=== PATIENT | female | born 2005 ===

== ENCOUNTER 2025-03-15 07:01 | Outpatient (REF) | payer BC, SELFPAY ==
--- NOTE | ~2025-03-15 | US_ITS ---
EXAMINATION: US PELVIS TRANSABDOMINAL AND TRANSVAGINAL HISTORY: PELVIC PAIN COMPARISON: There are no prior studies available for comparison. TECHNIQUE: Transabdominal and endovaginal real-time 2D damon-scale ultrasound was performed. FINDINGS: Uterus: The uterus is normal in size, measuring 8.3 x 3.2 x 4.9 cm. Myometrium has a normal echotexture. No fibroids are identified. Endometrium: The endometrial stripe measures 5 mm in thickness. An IUD appears in appropriate position in the endometrial cavity. Right ovary: The right ovary measures 2.5 x 2.1 x 1.9 cm. The right ovary is normal in size and echotexture. Left ovary: The left ovary measures 2.7 x 2.2 x 1.4 cm. The left ovary is normal in size and echotexture. Pelvic fluid: none. US/US pelvic and transvaginal IMPRESSION: Unremarkable pelvic ultrasound. IUD in appropriate position in the endometrial canal. Electronically signed by: Joe Cristina MD 03/15/2025 12:48 PM EDT
--- OUTSIDE RECORDS SUMMARY | 2025-03-15 07:04 | XMS_ITS | Encounter Summary ---
Author Organization [facility] Address [address] [facility] [address] [place] [phone] Phone Care Team Providers Care Tv Production Assistant Name Role Phone Pcp, Unknown Primary Care Provider Cyndi Marie MD Primary Care Provider [phone] Encounter Details Date Type Department Care Team (Late st Contact Info) Description 02/26/2025 Procedure Pass [facility], [address] [address] Social History Tobacco Use Types Packs/Day Years Used Date Smoking Tobacco: Never Smokeless Tobacco: Never Alcohol Use Standard Drinks/Week Comments Not Currently 0 (1 standard drink = 0.6 oz pur e alcohol) Education Answer Date Recorded Are you interested in more education? Not on kylah e 02/26/2025 Are you concerned about learning? Not on file 02/26/2025 No 02/26/2025 No 02/26/2025 Digital Access Answer Date Recorded No 02/26/2025 No 02/26/2025 Reliable internet access at home? Not on file 02/26/2025 Device with a working camera? Not on file Intimate Partner Violence Answer Date R ecorded Are you denied basic needs s uch as food, clothing, or medical care? No 02/25/2025 In the past 12 months have y ou been in a relationship with a person who hurts, threatens, or tries to control you? No 02/25/2025 Are you denied basic needs s uch as food, clothing, or medical care? No 02/25/2025 In the past 12 months have y ou been in a relationship with a person who hurts, threatens, or tries to control you? No 02/25/2025 Comments Unknown Sex and Gender Information Value Date Recorded Sex Assigned at Female 02/25/2025 11:02 PM EDT Legal Sex Female 10:38 PM EDT Gender Identity Female 02/25/2025 11:02 PM EDT Sexual Orientation Straight 02/25/2025 11 :02 PM EDT documented as of this encounter Plan of Treatment Not on file documented as of this encounter Visit Diagnoses Not on filedocumented in this encounter Care Teams Tv Production Assistant Relationship Specialty Start Date End Date Pcp, Unknown PCP - General 02/26/25 02/28/25 Cyndi Garcia MD [address] [place] [phone] [email or web address] PCP - General Family Medicine 03/01/25 documented as of this encounter Additional Source Comments The information contained in this document represents components of the legal health record. It is not the complete legal health record.[facility]
--- OUTSIDE RECORDS SUMMARY | 2025-03-15 07:04 | XMS_ITS | Clinical Summary ---
Author Organization [facility] Address [address] [place] [address] Phone Care Team Providers Care Lumber Yard Worker Name Role Phone Cyndi Garcia MD Primary Care Provider [phone] Allergies No known active allergies Medications oxyCODONE 5 MG immediate release tablet Take 1 tablet (5 mg total) by mouth every 6 (six) hours as needed for pain (specific location in comments). Partial fill ok 12 tablet Active oxyCODONE 5 MG immediate release tablet Take 1 tablet (5 mg total) by mouth every 6 (six) hours as needed for pain (specific location in comments). Partial fill ok 12 tablet 5 025 Discontinued Encounters Date Type Department Care Team Description 03/01/2025 1:30 PM EDT Office Visit [facility] [address] [place] [address] [place] [address] Gopal Lang DO Right hip pain (Primary Dx) 02/26/2025 2:04 AM EDT - 02/26/2025 3:05 PM EDT Emergency [facility] [address] [place] [address] John Lyons, Gume Shin MD Discharge Disposition: Home or Self Care 02/26/2025 Procedure Pass [address] [address] 02/26/2025 Procedure Pass [address] [address] from Last 3 Months Social History Tobacco Use Types Packs/Day Years Used Date Smoking Tobacco: Never Smokeless Tobacco: Never Tobacco Cessation:Counseling Given: Not Answered Alcohol Use Standard Drinks/Week Comments Not Currently [...] Orientation Straight 02/25/2025 11 :02 PM EDT Last Filed Vital Signs Vital Sign Reading Time Taken Comments Blood Pressure 103/63 02/26/2025 11:52 AM EDT Pulse 70 02/26/2025 3:03 PM EDT Temperature 36.4 C (97.5 F) 02/26/2025 3:03 PM EDT Respiratory Rate 16 02/26/2025 3:03 PM EDT Oxygen Saturation 97% 02/26/2025 3:03 PM EDT Inhaled Oxygen Concentration - - Weight 59 kg (130 lb) 02/25/2025 11:04 PM EDT Height 167.6 cm (5' 6 ) 02/25/2025 11:04 PM EDT Body Mass Index 20.98 02/25/2025 11:04 PM EDT Plan of Treatment Health Maintenance Due Date Last Done Comments MMR VACCINES (1 of 1 - Stand tracie series) 2006 DEVELOPMENTAL/BEHAVIORAL SCR EENING (PHQ, PSC, or SWYC) 02/11/2008 COMBINED DTaP,Tdap,Td (1 - Tdap) 02/11/2012 DEPRESSION SCREENING 2017 VARICELLA VACCINES (1 of 2 - 13+ 2-dose series) 2018 HPV VACCINES (1 - 3-dose series) 02/11/2020 CHLAMYDIA SCREENING 2021 MENINGOCOCCAL VACCINES (B) ( 1 of 2 - Standard) 2021 ADOLESCENT UNIVERSAL LIPID SCREENING 2022 HEPATITIS C SCREENING 2023 HIV ONE-TIME SCREENING (18-6 5 YEARS) 2023 INFLUENZA VACCINE (#1) 2024 COVID-19 VACCINE (1 - 2023-2 5 season) 2025 SMOKING Hx and SMOKELESS TOB ACCO SCREENING 02/25/2026 02/25/2025 HEPATITIS A VACCINES Aged Out No long er eligible based on patient's age to complete this topic HIB VACCINES Aged Out No longer eligi ble based on patient's age to complete this topic MENINGOCOCCAL VACCINES (ACWY) Aged Out No longer eligible based on patient's age to complete this topic PNEUMOCOCCAL VACCINES (0-49 years) Aged Out No longer eligible based on patient's age to complete this topic Medical Devices Not on file Procedures Procedure Name Priority Date/Time Associated Diagnosis Comments MRI LUMBAR SPINE (NEURO) WITHOUT CONTRAST Routine 02/26/2025 9:14 AM EDT MRI HIP WITHOUT CONTRAST (RIGHT) Routine 02/26/2025 9:13 AM EDT C-REACTIVE PROTEIN STAT 02/26/2025 3: 55 AM EDT HCG, SERUM QUALITATIVE STAT 02/26/2025 3:55 AM EDT BASIC METABOLIC PANEL STAT 02/26/2025 3:55 AM EDT CBC AND DIFFERENTIAL STAT 02/26/2025 3:55 AM EDT from Last 3 Months Results * MRI LUMBAR SPINE (NEURO) WITHOUT CONTRAST (02/26/2025 9:14 AM EDT) Anatomical Region Laterality Modality L-spine Magnetic Resonan ce 02/26/2025 2:15 PM EDT Impressions 02/26/2025 2:24 PM EDT 1. Transitional lumbosacral anatomy as described. 2. No significant degenerative changes or specific findings to account for the reported clinical symptoms. Narrative 02/26/2025 2:24 PM EDT MRI LUMBAR SPINE (NEURO) WITHOUT CONTRAST Referring clinician's provided indication for this examination in Epic: * Low back pain, > 6 wks TECHNIQUE: MRI LUMBAR SPINE (NEURO) WITHOUT CONTRAST COMPARISON: None. FINDINGS: LUMBAR SPINE: Lumbosacral Transitional Anatomy: There are 6 nonrib-bearing lumbar-type vertebrae with lumbarization of S1. For the purposes of numbering, the first non rib- bearing vertebra is designated L1 and the lowest fully formed intervertebral disc space is designated S1-S2. Alignment and Vertebrae: Normal alignment. Normal vertebral body heights; no compression fracture. Marrow: No suspicious marrow replacing process. No focal marrow edema-like signal. Discs and Endplates: Normal intervertebral disc heights and signal. Conus: Normal position terminating at the level of L2. No signal abnormality. Soft Tissues: No prevertebral edema. Other Findings: Normal caliber common aorta. Findings by level: T12-L1: Minimal disc bulge. No spinal or foraminal stenosis. L1-L2: No spinal or foraminal stenosis. L2-L3: No spinal or foraminal stenosis. L3-L4: No spinal or foraminal stenosis. L4-L5: No spinal or foraminal stenosis. L5-S1: No spinal or foraminal stenosis. S1-S2: No spinal or foraminal stenosis. Procedure Note Lang Agosto MD - 02/26/2025 MRI LUMBAR SPINE (NEURO) WITHOUT CONTRAST Referring clinician's provided indication for this examination in Epic: *Low back pain, > 6 wks TECHNIQUE: MRI LUMBAR SPINE (NEURO) WITHOUT CONTRAST COMPARISON: None. FINDINGS: LUMBAR SPINE: Lumbosacral Transitional Anatomy: There are 6 nonrib-bearing lumbar- typevertebrae with lumbarization of S1. For the purposes of numbering, thefirst non rib- bearing vertebra is designated L1 and the lowest fullyformed intervertebral disc space is designated S1-S2. Alignment and Vertebrae: Normal alignment. Normal vertebral body heights;no compression fracture. Marrow: No suspicious marrow replacing process. No focal marrow edema- likesignal. Discs and Endplates: Normal intervertebral disc heights and signal. Conus: Normal position terminating at the level of L2. No signalabnormality. Soft Tissues: No prevertebral edema. Other Findings: Normal caliber common aorta. Findings by level: T12-L1: Minimal disc bulge. No spinal or foraminal stenosis. L1-L2: No spinal or foraminal stenosis. L2-L3: No spinal or foraminal stenosis. L3-L4: No spinal or foraminal stenosis. L4-L5: No spinal or foraminal stenosis. L5-S1: No spinal or foraminal stenosis. S1-S2: No spinal or foraminal stenosis. IMPRESSION: 1. Transitional lumbosacral anatomy as described. 2. No significant degenerative changes or specific findings to accountfor the reported clinical symptoms. Michelle Benoit PA-C IMG MR XSPECIALTY Final Res ult * MRI HIP WITHOUT CONTRAST (RIGHT) (02/26/2025 9:13 AM EDT) Anatomical Region Laterality Modality Hip Right Magnetic Resonan ce 02/26/2025 9:37 AM EDT Impressions 02/26/2025 9:46 AM EDT Nondisplaced anterosuperior labral tear. No focal cartilage defect. Narrative 02/26/2025 9:46 AM EDT MRI HIP WITHOUT CONTRAST (RIGHT) Referring clinician's provided indication for this examination in [facility]: * Hip pain, chronic, labral tear suspected, xray done TECHNIQUE: Multi-sequence, multi-planar MRI of the hip without intravenous contrast. COMPARISON: None FINDINGS: ENTIRE PELVIS SCREENING: No fracture, sacroiliitis, or focal bone lesion. DEDICATED RIGHT HIP: Bone: No fracture or osteonecrosis. Joint: No focal cartilage defect or subchondral bone marrow edema. Mild fibrocystic change at the anterior femoral head/neck junction. Nondisplaced anterosuperior labral tear (series 15, image 10). Tendons: Gluteus minimus, gluteus medius, iliopsoas, rectus femoris, and proximal hamstring tendons are intact. Soft Tissues: Very mild peritendinous edema along the gluteus minimus, but no intrasubstance signal alteration. Procedure Note Porter Pena MD - 02/26/2025 MRI HIP WITHOUT CONTRAST (RIGHT) Referring clinician's provided indication for this examination in [facility]: *Hip pain, chronic, labral tear suspected, xray done TECHNIQUE: Multi-sequence, multi-planar MRI of the hip without intravenouscontrast. COMPARISON: None FINDINGS: ENTIRE PELVIS SCREENING: No fracture, sacroiliitis, or focal bone lesion. DEDICATED RIGHT HIP: Bone: No fracture or osteonecrosis. Joint: No focal cartilage defect or subchondral bone marrow edema. Mildfibrocystic change at the anterior femoral head/neck junction.Nondisplaced anterosuperior labral tear (series 15, image 10). Tendons: Gluteus minimus, gluteus medius, iliopsoas, rectus femoris, andproximal hamstring tendons are intact. Soft Tissues: Very mild peritendinous edema along the gluteus minimus, butno intrasubstance signal alteration. IMPRESSION: Nondisplaced anterosuperior labral tear. No focal cartilage defect. us Michelle Benoit PA-C IMG MR EXTREMITY Final Resu lt * HCG, serum qualitative (02/26/2025 3:55 AM EDT) HCG, QUALITATIVE Negative Negative IU/L [facility] Blood 02/26/2025 3:55 AM EDT 02/26/2025 3:57 AM EDT us Michelle Benoit PA-C LAB BLOOD ORDERABLES Final Result [facility] [address] [place] [address] * (ABNORMAL) CBC and differential (02/26/2025 3:55 AM EDT) WBC 9.16 4.00 - 11.00 K/uL [facility] RBC 3.98(L) 4.00 - 5.20 M/uL [facility] HGB 12.3 12.0 - 16.0 g/dL [facility] HCT 36.1 36.0 - 46.0 % [facility] PLT 319 150 - 450 K/uL [facility] MCV 90.7 80.0 - 100.0 fL [facility] MCH 30.9 27.0 - 31.0 pg [facility] MCHC 34.1 32.0 - 36.0 g/dL [facility] RDW 11.9 11.5 - 14.5 % [facility] MPV 8.9 8.4 - 12.0 fL [facility] NRBC 0.00 0.00 /100 WBCs [facility] ABSOLUTE NRBC 0.00 0.00 K/uL [facility] DIFF METHOD Auto [facility] NEUTS 53.9 48.0 - 76.0 % [facility] LYMPHS 34.7 18.0 - 41.0 % [facility] MONOS 7.5 4.0 - 11.0 % [facility] EOS 3.1 0.0 - 5.0 % [facility] BASOS 0.5 0.0 - 1.5 % [facility] Granulocytes, immature (%) 0.3 0.0 - 0.9 % [facility] ABSOLUTE NEUTS 4.93 1.92 - 7.60 K/uL [facility] ABSOLUTE LYMPHS 3.18 0.72 - 4.10 K/uL [facility] ABSOLUTE MONOS 0.69 0.16 - 1.10 K/uL [facility] ABSOLUTE EOS 0.28 0.00 - 0.50 K/uL [facility] ABSOLUTE BASOS 0.05 0.00 - 0.15 K/uL [facility] Granulocytes, immature 0.03 0.00 - 0.09 K/uL [facility] Blood 02/26/2025 3:5 5 AM EDT 02/26/2025 3:57 AM EDT Michelle Benoit PA-C LAB BLOOD ORDERABLES Final Result Performing Organization Address City/[facility]/ZIP Co de Phone Number [address] [address] * C-Reactive Protein (02/26/2025 3:55 AM EDT) Pathologist [facility] C REACTIVE PROTEIN <3.0 0.0 - 4.0 mg/L [facility] Blood 02/26/2025 3:55 AM EDT 02/26/2025 3:57 AM EDT Michelle Benoit PA-C LAB BLOOD ORDERABLES Final Result Performing Organization Address City/[facility]/ZIP Co de Phone Number [address] [address] * Basic metabolic panel (02/26/2025 3:55 AM EDT) SODIUM 141 133 - 146 mmol/L [facility] CHLORIDE 106 96 - 108 mmol/L [facility] POTASSIUM 3.6 3.3 - 5.1 mmol/L [facility] CO2 23 21 - 35 mmol/L [facility] BUN 13 6 - 19 mg/dL [facility] CREATININE 0.60 0.5 - 1.5 mg/dL [facility] GLUCOSE 91 70 - 99 mg/dL [facility] CALCIUM 8.8 8.4 - 10.3 mg/dL [facility] EGFR >120 >59 mL/min/1.7 3m2 [facility] Comment:Estimated glomerular filtration rate calculated using the CKD-EPI refit equation. ANION GAP 16 10 - 20 mmol/L [facility] Blood 02/26/2025 3:55 AM EDT 02/26/2025 3:57 AM EDT us Michelle Benoit PA-C LAB BLOOD ORDERABLES Final Result [facility] [address] [place] [address] from Last 3 Months Insurance BLUE CROSS OUT OF STATE PPO [facility] [employer] [place] [id number] BLUE CROSS OUT OF STATE PPO Member Subscriber Plan / Payer (Ef fective 2018-Present) Name:Mary Thomas Relation to Subscriber:Child Name:Gianni Thomas Date of :1975 Address: [address] [place] [id number] Payer ID:[id number] (NAIC) Type:PPO Address: [address] [employer] PPO [employer] [place] [id number] BLUE CROSS OUT OF STATE PPO [facility] [employer] BLUE CROSS OUT OF STATE PPO [employer] [place] [place] [id number] [employer]TS INJURY [place] [id number] Care Teams Lumber Yard Worker Relationship Specialty Start Date End Date Cyndi Garcia MD [address] [place] [phone] [email or web address] PCP - General Family Medicine 03/01/25 Additional Source Comments The information contained in this document represents components of the legal health record. It is not the complete legal health record.[facility]
--- OUTSIDE RECORDS SUMMARY | 2025-03-15 07:04 | XMS_ITS | Encounter Summary ---
Author Organization [facility] Address [address] [facility] [address] [place] [phone] Phone Care Team Providers Care Freight Sorter Name Role Phone Pcp, Unknown Primary Care Provider Cyndi Marie MD Primary Care Provider [phone] Encounter Details Date Type Department Care Team (Late st Contact Info) Description 02/26/2025 Procedure Pass [facility], [address] [address] Social History Tobacco Use Types Packs/Day Years [...] on filedocumented in this encounter Care Teams Freight Sorter Relationship Specialty Start Date End Date Pcp, Unknown PCP - General 02/26/25 02/28/25 Cyndi Garcia MD [address] [place] [phone] [email or web address] PCP - General Family Medicine 03/01/25 documented as of this encounter Additional Source Comments The information contained in this document represents components of the legal health record. It is not the complete legal health record.[facility]
== END 2025-03-15 07:02 | disposition home or self-care (01) ==
LOC: HO.UMASIMG 07:01
PROVIDERS: Visit Provider Student in an Organized Health Care Education/Training Program
DX: R10.20 Pelvic and perineal pain unspecified side (principal)
CPT/HCPCS: 76830; 76856

== ENCOUNTER → 2025-03-15 10:53 | Outpatient (BNV) | payer BC, SELFPAY | PROVIDERS: Visit Provider Radiology Diagnostic Radiology | DX: R10.20 Pelvic and perineal pain unspecified side (principal) | CPT/HCPCS: 76830; 76856 ==